=== PATIENT | male | born 1980 | race Caucasian/White ===

== ENCOUNTER 2025-03-31 00:56 | Emergency (ER) | payer OTHER, SELFPAY ==
[2025-03-31 01:00] VITALS: BP 154/89; PULSE 82; TEMP 36.3; O2SAT 100; BMI 30.4
--- OUTSIDE RECORDS SUMMARY | 2025-03-31 01:11 | XMS_ITS | Clinical Summary ---
Author Organization [facility] Address [address] [place] [address] Phone Care Team Providers Care Geophysical Prospecting Permit Agent Name Role Phone Tee Rosas DO Primary Care Provider [phone] Social History Tobacco Use Types Packs/Day Years Used Date Smoking Tobacco: Never Assessed Sex and Gender Information Value Date Recorded Sex Assigned at Not on file Legal Sex Male 10:48 AM EST Gender Identity Not on file Sexual Orientation Not on file Last Filed Vital Signs Vital Sign Reading Time Taken Comments Blood Pressure 126/86 03/02/2020 10:36 AM EDT Pulse 87 03/02/2020 10:34 AM EDT Temperature - - Respiratory Rate - - Oxygen Saturation 98% 03/02/2020 10:34 AM EDT Inhaled Oxygen Concentration - - Weight 121 kg (266 lb) 03/02/2020 10:34 AM EDT Height 182.9 cm (6') 03/02/2020 10:34 AM EDT Body Mass Index 36.08 03/02/2020 10:34 AM EDT Plan of Treatment Not on file Care Teams Geophysical Prospecting Permit Agent Relationship Specialty Start Date End Date Tee Rosas DO [address] [place] [address] PCP - General 03/02/20
--- OUTSIDE RECORDS SUMMARY | 2025-03-31 01:11 | XMS_ITS | Clinical Summary ---
Author Organization [facility] Address [address] [facility] [place] [address] Care Team Providers Care Hand Cutter Apprentice Name Role Phone Tee Rosas DO Primary Care Provider [phone] Allergies No known active allergies Medications No known medications Active Problems Problem Noted Date Diagnosed Date Heart murmur 12/12/2022 Family History Medical History Relation Name Comments No Known Problems Brother 1 No Known Problems Daughter 1 Hypertension Father Mitral valve prolapse Mother Relation Name Status Comments Brother 1 Alive Daughter 1 Alive Father Alive Mother Alive Social History Tobacco Use Types Packs/Day Years Used Date Smoking Tobacco: Never Smokeless Tobacco: Never Tobacco Cessation:Counseling Given: Not Answered Alcohol Use Standard Drinks/Week Comments Yes 6 (1 standard drink = 0.6 oz pur e alcohol) Humiliation, Afraid, Rape, and Kick questionnair e Answer Date Recorded Within the last year, have y ou been afraid of your partner or ex-partner? No 12/13/2022 Within the last year, have y ou been humiliated or emotionally abused in other ways by your partner or ex-partner? No Within the last year, have y ou been kicked, hit, slapped, or otherwise physically hurt by your partner or ex-partner? No 12/13/2022 Within the last year, have y ou been raped or forced to have any kind of sexual activity by your partner or ex-partner? No 12/13/2022 Social Connection and Isolat ion Panel [NHANES] Answer Date Recorded In a typical week, how many times do you talk on the phone with family, friends, or neighbors? Once a week 12/13/2022 How often do you get togethe r with friends or relatives? Once a week 12/13/2022 How often do you attend chur ch or pentecostal services? More than 4 times per year 12/13/2022 Do you belong to any clubs o r organizations such as pentecostal groups, unions, fraternal or athletic groups, or school groups? No 12/13/2022 How often do you attend meet ings of the clubs or organizations you belong to? Never 12/13/2022 Are you , , di vorced, , never , or living with a partner? 12/13/2022 AUDIT-C Answer Date Recorded Q1: How often do you have a drink containing alc ohol? 2-3 times a week 12/13/2022 Q2: How many drinks containi ng alcohol do you have on a typical day when you are drinking? 1 or 2 12/13/2022 Q3: How often do you have si x or more drinks on one occasion? Less than monthly 12/13/2022 Overall Financial Resource Strain (CARDIA) Answe r Date Recorded How hard is it for you to pa y for the very basics like food, housing, medical care, and heating? Not hard at all 12/13/2022 [facility] [place] [facility] - Occupational Stress Questionnaire Answer Date Recorded Do you feel stress - tense, restless, nervous, or anxious, or unable to sleep at night because your mind is troubled all the time - these days? Not at all 12/13/2022 Exercise Vital Sign Answer Date Recorde d On average, how many days pe r week do you engage in moderate to strenuous exercise (like a brisk walk)? 5 days 12/13/2022 On average, how many minutes do you engage in exercise at this level? 30 min 12/13/2022 Hunger Vital Sign Answer Date Recorded Within the past 12 months, y ou worried that your food would run out before you got the money to buy more. Never true 12/14/19 23 Within the past 12 months, t he food you bought just didn't last and you didn't have money to get more. Never true 12/13/2022 PRAPARE - Transportation Answer Date Re corded In the past 12 months, has l ack of transportation kept you from medical appointments or from getting medications? No 08/2022 In the past 12 months, has l ack of transportation kept you from meetings, work, or from getting things needed for daily living? No 12/13/2022 Housing Stability Vital Sign Answer Neel e Recorded In the last 12 months, was t here a time when you were not able to pay the mortgage or rent on time? No 12/13/2022 In the last 12 months, how many places have you lived? 1 12/13/2022 In the last 12 months, was t here a time when you did not have a steady place to sleep or slept in a fpc (including now)? No 12/13/2022 Sex and Gender Information Value Date Recorded Sex Assigned at Not on file Legal Sex Male 6:39 PM EDT Gender Identity Not on file Sexual Orientation Not on file Last Filed Vital Signs Vital Sign Reading Time Taken Comments Blood Pressure 140/90 10/01/2023 1:48 PM EDT Pulse 74 10/01/2023 1:48 PM EDT Temperature 37.1 C (98.7 F) 10/01/2023 1:48 PM EDT Respiratory Rate - - Oxygen Saturation 98% 10/01/2023 1:48 PM EDT Inhaled Oxygen Concentration - - Weight 103 kg (226 lb) 10/01/2023 1:48 PM EDT Height 184.2 cm (6' 0.5 ) 10/01/2023 1:48 PM EDT Body Mass Index 30.23 10/01/2023 1:48 PM EDT Plan of Treatment Health Maintenance Due Date Last Done Comments CT Colonography 1979 Colonoscopy 1979 Colorectal Cancer Screening 1979 FIT-DNA 1979 FIT 1979 FOBT 1979 Sigmoidoscopy 1979 Influenza Vaccine (#1) 2025 Insurance [employer] Care Teams Hand Cutter Apprentice Relationship Specialty Start Date End Date Tee Rosas DO [address] [id number] PCP - General Family Medicine 12/13/22
[2025-03-31] MEDS: LIDOCAINE 5% PATCH 1 PATCH TOPICAL (01:32)
[2025-03-31] MEDS: METHOCARBAMOL 500 MG TABLET PO (01:32)
[2025-03-31] MEDS: IBUPROFEN 400 MG TABLET PO (01:32)
--- NOTE | 2025-03-31 01:59 | ED_ITS ---
HPI HPI - General Adult General Chief complaint: Back Pain/Injury Stated complaint: BACK PAIN / INJURY Time Seen by Provider: 03/31/25 01:03 Source: patient Mode of arrival: walk-in Limitations: no limitations History of Present Illness HPI narrative: Patient is a 44-year-old male presenting to the emergency department for evaluation of back pain. Patient states that last night at 8:30 PM, approximately 5 hours ago, he was bending over to hitch his boat when he felt a pop in his lower back. He states he buckled to his knees in pain, and since then has had persistent pain in his lower back that radiates to his bilateral thighs. He took 400 mg of ibuprofen earlier tonight, which somewhat helped the pain. He denies history of previous injuries or surgeries to the lower back. H e denies any weakness in the lower extremities. Denies loss of bladder/bowel function. No numbness or tingling in the bilateral lower extremities. He has been able to ambulate, though it does cause some significant pain. Related Data Previous Rx's ?Medication ?Instructions ?Recorded famotidine 20 mg tablet 20 mg PO BID PRN acid reflux 2 03/31/25 weeks #30 tabs ibuprofen 600 mg tablet 600 mg PO Q8H PRN pain 2 wee ks #30 03/31/25 tabs lidocaine 4 % topical patch 1 patch topical DAILY PRN pain #10 03/31/25 ea methocarbamol 500 mg tablet 500 mg PO TID PRN pain 5 d ays #15 03/31/25 tabs Allergies Allergy/AdvReac Type Severity Reaction Status Date / Time No Known Drug Allergies Allergy Verified 03/31/25 01:04 Opioid HPI Opioid Management Most Recent Opioid Data: Last Pain Scale 9 Today, 01:08 Review of Systems ROS Status of ROS 10 or more systems reviewed and unremark able except as noted in history and below PFSH PFSH Social History Little interest or pleasure in doing things: not at all Feeling down, depressed, or hopeless: not at all Exam Narrative Exam Narrative: CONSTITUTIONAL: Appears moderately uncomfortable, sitting upright in the stretcher with his legs fully extended, answering questions and following commands appropriately SKIN: Was warm and dry, no skin changes overlying the lower back. EYES: Sclerae white. EARS, NOSE, THROAT: Moist oral mucosa. RESPIRATORY: Nonlabored respirations. CARDIOVASCULAR: Normal rate and regular rhythm. There is no S3, S4, murmur, rub. GASTROINTESTINAL: Abdomen is nondistended. MUSCULOSKELETAL: There is reproducible tenderness palpation throughout the paraspinal muscles of the bilateral lower back. He has full range of motion of the bilateral lower extremities. There is no peripheral edema. Negative straight leg raise test bilaterally. No midline L spine tenderness. NEUROLOGIC: Patient is awake and alert. Equal strength and sensation to light touch in the bilateral lower extremities. Ambulates with an antalgic gait. Constitutional Vital Signs, click to edit/add: Last Vital Signs Temp 97.4 F L 03/31/25 01:00 Pulse 82 03/31/25 01:00 Resp 16 03/31/25 01:00 BP 154/89 H 03/31/25 01:00 Pulse Ox 100 03/31/25 01:00 O2 Del Method Room Air 03/31/25 01:00 Course Vital Signs Vital signs: Vital Signs Temperature 97.4 F L 03/31/25 01:00 Pulse Rate 82 03/31/25 01:00 Respiratory Rate 16 03/31/25 01:00 Blood Pressure 154/89 H 03/31/25 01:00 Pulse Oximetry 100 03/31/25 01:00 Oxygen Delivery Method Room Air 03/31/25 01:00 Temperature 97.4 F L 03/31/25 01:00 Pulse Rate 82 03/31/25 01:00 Respiratory Rate 16 03/31/25 01:00 Blood Pressure 154/89 H 03/31/25 01:00 Pulse Oximetry 100 03/31/25 01:00 Oxygen Delivery Method Room Air 03/31/25 01:00 Medical Decision Making MDM Narrative Medical decision making narrative: Patient is a 44-year-old male presenting to the emergency department with a 5- hour history of bilateral lower back pain radiating into his bilateral lower extremities after bending over to hit his boat earlier tonight. His vital signs on arrival are within normal limits. He is afebrile and hemodynamically stable. Examination as noted above, however was notable for reproducible tenderness to palpation of the paraspinal muscles throughout the bilateral lower back. There is good strength, sensation, and distal perfusion of the bilateral lower extremities - neurovascularly intact. Differential diagnosis includes herniated disc, lumbar muscle strain, lumbar radiculopathy. There are no findings that would be suggestive of cauda equina syndrome or acute spinal cord compression. No blunt injuries to suggest osseus abnormalities such as fracture or dislocations. No history of cancer to suggest pathologic fracture or metastatic disease. I do not believe imaging is indicated on an emergent basis. Patient will be treated symptomatically with oral Robaxin, Motrin, and a Lidocaine patch. I do believe the patient is stable for discharge at this time. Patient's presentation is most likely consistent with lumbar muscle strain, possibly herniated disc. They were instructed to follow up with his PCP in the next 2 weeks and if symptoms persist. Return precautions were given including any new or worsening symptoms, including weakness/paresthesia/loss of bladder/bowel function. They were given a prescription for ibuprofen, Robaxin, lidocaine patch, and famotidine. He was instructed to refrain from heavy lifting for the next couple weeks. Patient was able to ambulate out of the emergency department well without any assistance. Patient understands and agrees to the plan. FINAL IMPRESSION: #Acute lower back pain DISPOSITION: Discharged home CONDITION: Good Discharge Plan Discharge Chief Complaint: Back Pain/Injury Clinical Impression: Strain of lumbar region Qualifiers: Encounter type: initial encounter Qualified Code(s): S39.012A - Strain of muscle, fascia and tendon of lower back, initial encounter Patient Disposition: Home, Self-Care Time of Disposition Decision: 01:19 Condition: Good Mode of Transportation: Private Vehicle Prescriptions / Home Meds: New methocarbamol 500 mg tablet 500 mg PO TID PRN (Reason: pain) 5 Days Qty: 15 0RF ibuprofen 600 mg tablet 600 mg PO Q8H PRN (Reason: pain) 14 Days Qty: 30 0RF lidocaine 4 % adhesive patch,medicated 1 patch topical DAILY PRN (Reason: pain) Qty: 10 0RF Rx Instructions: may leave on for up to 12 hrs famotidine 20 mg tablet 20 mg PO BID PRN (Reason: acid reflux) 14 Days Qty: 30 0RF Print Language: Yakut Instructions: Low Back Strain (ED) Referrals: Physician,Non-Staff, [Physician] - 1 week Discharge Date/Time: 03/31/25 01:40
== END 2025-03-31 01:40 | disposition home or self-care (01) ==
PROVIDERS: Emergency Provider Student in an Organized Health Care Education/Training Program; PCP Family Medicine
DX: S39.012A Strain of muscle, fascia and tendon of lower back, initial encounter (principal); X50.1XXA Overexertion from prolonged static or awkward postures, initial encounter
CPT/HCPCS: 99284